=== PATIENT | male | born 1940 | race Caucasian/White ===

== ENCOUNTER 2016-11-03 15:24 | Inpatient (IN) | payer MEDICARE, BC ==
--- NOTE | ~2016-11-03 | HP ---
Unit #: [id number] #: [id number] Patient: ISRAEL ZUNIGA [id number] [address] [address] [id number] E MR#: [id number] NAME: ISRAEL ZUNIGA ROOM: Age: 76 Sex: M Admission Date: 11/03/2016 : 1940 Attending Physician: Anastacio Kovacs M.D. Primary Care Physician: Wilfrido Le M.D. HISTORY AND PHYSICAL CHIEF COMPLAINT Confusion, dizzy. HISTORY OF PRESENT ILLNESS The patient is a 76-year-old male with past medical history of chronic kidney disease, chronic anemia, paroxysmal atrial fibrillation, chronic anticoagulation, hypertension, hyperlipidemia, COPD, GERD, chronic pain, diabetes, who presented to the emergency department for evaluation of the above. History is obtained from chart review and discussion with the ER staff as well as the patient's , who is at the bedside, and the patient. Apparently the patient has been somewhat confused for the past three days. She states that he has been "taking out of his head." He has been feeling increasingly generally weak. He had two bouts of emesis within the past 24 hours. He denies any abdominal pain, no diarrhea, no cough or cold symptoms. These symptoms are similar to when he has had low sodium in the past. In the emergency department initial pulse and blood pressure were 69 and 175/92 respectively. Comprehensive metabolic panel is notable for a sodium of 126. He was given 1 L of normal saline. He is being admitted to [facility] for evaluation and further treatment. PAST MEDICAL HISTORY 1. Admission to [facility] September 06-2016 for dizziness attributed to hyponatremia. He was seen in consultation by nephrology who felt that the low sodium was prerenal in etiology as it improved with fluids. 2. Paroxysmal atrial fibrillation, on chronic anticoagulation with Coumadin, followed by Dr. Dick. 3. Hypertension. 4. Hyperlipidemia. 5. COPD, not on home oxygen. 6. GERD. 7. Chronic pain. 8. Chronic kidney disease, followed by Dr. Laughlin. 9. Chronic anemia. 10. Echocardiogram December 23, 2014 showed an ejection fraction of 50% to 55% with mild septal dyskinesis, mild concentric left ventricular hypertrophy, mild mitral regurgitation, mild tricuspid regurgitation, mild pulmonic valvular regurgitation. Unit #: [id number] #: [id number] Patient: ISRAEL ZUNIGA PAST SURGICAL HISTORY 1. Cholecystectomy. 2. Bilateral inguinal hernia repair. 3. Foot surgery. 4. Vasectomy. SOCIAL HISTORY The patient lives with his . He quit smoking. There is no alcohol use. FAMILY HISTORY Noncontributory. REVIEW OF SYSTEMS A complete review of systems is negative except as indicated in the HPI. DIAGNOSTIC STUDIES CARDIOVASCULAR: EKG shows paced rhythm with a rate of 64 beats per minute. IMAGING: Chest x-ray shows nothing acute. CT of the head shows nothing acute. LABORATORY: Complete blood count notable for hemoglobin and hematocrit 10.1 and 28.8 respectively. Troponin is less than 0.05. Rapid flu screen is negative. INR is 1.3. Comprehensive metabolic panel notable for sodium of 126, chloride is 94, glucose 140, BUN and creatinine 18 and 1.6 respectively, albumin is 2.9. Urinalysis notable for 3+ protein, 100 glucose, 2+ blood, with 10 to 25 red blood cells. PHYSICAL EXAMINATION VITAL SIGNS: Temperature is 97.5. Pulse 69. Respirations 13. Blood pressure 175/92. Oxygen saturation is 96% on room air. GENERAL: The patient is a male who is awake and alert, in no acute distress. HEENT: The head is atraumatic. Mucous membranes are moist. NECK: Neck is supple. Trachea is midline. CARDIOVASCULAR: Regular rate and rhythm. LUNGS: Lungs are clear to auscultation bilaterally with no increased work of breathing. ABDOMEN: Abdomen is soft, nontender, with bowel sounds present all four quadrants. EXTREMITIES: Nontender with no pedal edema. NEUROLOGIC: The patient is awake and alert. He is oriented to person and place only. He follows commands. PSYCHIATRIC: Mood and affect are normal. The patient is cooperative. SKIN: Skin of examined areas is warm and dry. ASSESSMENT The patient is a 76-year-old male with: 1. Altered mental status, likely secondary to #2. 2. Hyponatremia. The patient has had two bouts of emesis within the past 24 hours but otherwise has been eating at baseline per family. He has not had any change in his medications. 3. Generalized weakness, likely secondary to hyponatremia. 4. Chronic kidney disease. The patient's creatinine was 1.4 on September 08, 2016. It is 1.6 today. Unit #: [id number] #: [id number] Patient: ISRAEL ZUNIGA 5. Chronic anemia. The patient's hemoglobin was 9.6 on September 08, 2016. It is 10.1 today. 6. Paroxysmal atrial fibrillation. 7. Chronic anticoagulation with Coumadin. The patient's INR is 1.3 today. 8. Hypertension. 9. Hyperlipidemia. 10. Chronic obstructive pulmonary disease. 11. Gastroesophageal reflux disease. 12. Chronic pain. 13. Former smoker. 14. Diabetes. PLAN 1. Admit to intermediate level. 2. Healthy heart consistent carb diet if passes bedside swallow. 3. Normal saline at 75 mL an hour. 4. TSH, B12 and folate. 5. Neuro checks. 6. Urine sodium and osmolality. 7. Serum osmolality. 8. Repeat BMP later this evening to follow up hyponatremia. 9. Consult Dr. Laughlin regarding hyponatremia. 10. Bed rest. 11. Fall precautions. 12. PT/OT to evaluate and treat. 13. Serial cardiac enzymes. 14. Supplemental oxygen. 15. P.r.n. DuoNeb. 16. Hemoglobin A1C. 17. Low dose sliding scale insulin with Accu-Cheks. 18. Additional workup and consultants based on above. Dictated by Zelda Arzola/raghu TD: 11/03/2016 18:12 JOB #: [id number] HISTORY AND PHYSICAL X Valentina Amato MD X HISTORY AND PHYSICAL
--- NOTE | ~2016-11-03 | DS ---
Unit #: [id number] #: [id number] Patient: ISRAEL ZUNIGA [id number] [address] [place], [place] [address] [id number] I MR#: [id number] NAME: ISRAEL ZUNIGA. ROOM: 306 Age: 76 Sex: M Admission Date: 11/03/2016 : 1940 Discharge Date: 11/06/2016 Attending Physician: Duke Benson M.D. Primary Care Physician: Wilfrido Le M.D. DISCHARGE SUMMARY REASON FOR ADMISSION Confusion, dizziness. HISTORY OF PRESENT ILLNESS/HOSPITAL COURSE The patient is a 76-year-old male with underlying history of chronic kidney disease, chronic anemia, paroxysmal atrial fibrillation on chronic anticoagulation, hypertension, hyperlipidemia, COPD, GERD, xytu-yv-jstbjzsm Alzheimer dementia who apparently had increased confusion while he was at home. became concerned secondary to prior history of having low sodium. The patient was evaluated in the emergency room and noted to have a sodium of 126, elevated creatinine of 1.6 and thus was admitted for hyponatremia as well as acute confusion. Routine laboratory studies were obtained. B12 level was noted to be 299. He was appropriately treated while he was here. Cardiac enzymes were also cycled and they were negative. Hemoglobin A1c came back at 5.6%. We placed consultation to Dr. Amanda of nephrology services as their team had seen the patient in the past. The patient received Samsca on two different occasions. This morning the patient's sodium now stands at 130. After chart review, it appears this is one of the highest sodium numbers he has had in the past several months. His creatinine today at time of discharge is 1.5. We are waiting final renal review of his laboratory studies. The patient as well as his wished to go home. Therefore, plans will be for patient to be discharged home with the understanding that they will have close outpatient followup with PCP in approximately 7-10 days as well as nephrology services per their direction. He should be set up for outpatient vitamin B12 injections either on q. week to q.2 weeks basis after time of discharge. FINAL DISCHARGE DIAGNOSES 1. Hyponatremia. 2. Dizziness, likely secondary to hyponatremia. 3. Paroxysmal atrial fibrillation on chronic anticoagulation followed by Dr. Dick. 4. Hypertension. 5. Hyperlipidemia. 6. Chronic obstructive pulmonary disease. 7. Gastroesophageal reflux disease. 8. Chronic kidney disease followed by Dr. Laughlin routinely. 9. Anemia. Unit #: [id number] #: [id number] Patient: ISRAEL ZUNIGA 10. Diastolic dysfunction with ejection fraction of 50% to 55% on last echo in December 2014. FINAL DISCHARGE MEDICATIONS 1. Tylenol 650 mg p.o. q.6 p.r.n. 2. Coumadin 5 mg p.o. daily six times a week. 3. Pravachol 40 mg p.o. daily. 4. Tenormin 25 mg p.o. b.i.d. 5. Cozaar 50 mg p.o. b.i.d. 6. Multivitamin daily. 7. Aspirin 81 mg p.o. daily. 8. Vitamin B12 at 1000 mcg IM q. week. DISCHARGE CONDITION Stable. DISCHARGE DISPOSITION Home. Dictated by... Zelda Ho/urbano TD: 11/06/2016 10:19 JOB #: [id number] DISCHARGE SUMMARY X Duke Benson MD X DISCHARGE SUMMARY
--- NOTE | ~2016-11-03 | CO ---
Unit #: [id number] #: [id number] Patient: ISRAEL ZUNIGA [id number] [address] [place], [place] [address] [id number] I MR#: [id number] NAME: ISRAEL ZUNIGA. ROOM: 306 Age: 76 Sex: M Admission Date: 11/03/2016 : 1940 Attending Physician: Duke Benson M.D. Primary Care Physician: Wilfrido Le M.D. Requesting Physician: Duke Benson M.D. CONSULTATION REPORT REASON FOR CONSULTATION Hyponatremia, known history of CKD, stage [address] Laughlin. Patient admitted with hyponatremia and confusion. HISTORY OF PRESENT ILLNESS This patient is a pleasant 76-year-old white gentleman with history of hypertension, history of COPD, chronic atrial fibrillation, CKD stage 3, chronic hyponatremia secondary to SIADH. Patient was recently switched from Cymbalta to fluoxetine. Patient started to get confusion over the last 3 days since he started the medicine and was brought in. He was found to be hyponatremic, most likely precipitated by SSRI. The patient is still confused but improving. The patient's serum sodium actually went down from 126 to 123 with IV fluids of which just confirms the same diagnosis of SIADH. He has urinary sodium of 46 and osmolarity of 410 and presence of serum sodium of 123, confirming SIADH diagnosis. The patient denied dysuria, frequency of urination, cough with sputum production, chest pain or shortness of breath. PAST MEDICAL HISTORY As per history of present illness. HOME MEDICATIONS Include: 1. Atenolol 25 mg daily. 2. Pravastatin 40 mg daily. 3. Losartan 50 mg daily. 4. Aspirin 80 mg daily. 5. Glucosamine 1500 mg b.i.d. 6. Fish oil 600 mg b.i.d. 7. Multivitamin daily. 8. Tylenol daily. 9. Coumadin 5 mg daily. 10. He was recently started on fluoxetine which has been stopped. FAMILY HISTORY Noncontributory. PHYSICAL EXAMINATION VITAL SIGNS: Temperature 98.2, pulse 65, blood pressure 147/77. GENERAL: The patient is in no acute distress. HEENT: Unremarkable. Mild pallor, no oral exudate. NECK: Supple. No JVD or bruit, no thyromegaly, no cervical lymphadenopathy. LUNGS: Clear to auscultation bilaterally. Unit #: [id number] #: [id number] Patient: ISRAEL ZUNIGA HEART: Regular rate and rhythm. No rub, murmur or gallop. ABDOMEN: Soft, nontender, nondistended. Positive bowel sounds. EXTREMITIES: No peripheral edema. DIAGNOSTIC STUDIES LABORATORY: Urinary sodium was 46, osmolarity 410. Serum sodium 123, potassium 4.1, chloride 95, bicarb 26, BUN 14, creatinine 1.4 down from 1.6, glucose 105, calcium 8.1, uric acid 4.2. Urinalysis has some pyuria and bacteruria along with proteinuria of 3+ which would be quite unusual for patient without diabetic kidney disease. Patient had rbc's 10-25, wbc's 2-5. Patient also has some yeast but no bacteria. ASSESSMENT 1. Patient with confusion with hyponatremia. Will discontinue fluoxetine. Patient will receive a dose of Samsca today and will monitor his electrolytes in 10-12 hours of the dose. Patient seemed to be improving clinically. 2. Proteinuria, hematuria. Will check the 24-hour urine and rule out other secondary causes for patient's proteinuria. Dictated by... Neida Amanda M.D. BECK/kera TD: 11/04/2016 20:20 JOB #: [id number] CONSULTATION REPORT X Parish Amanda MD X CONSULTATION REPORT
--- NOTE | ~2016-11-03 | CT71 ---
[facility] A Service [facility] RADIOLOGY TEXT RESULTS PATIENT: ISRAEL ZUNIGA LOCATION: [facility] : 38 UNIT #: [id number] AGE: [address]: Duke Benson MD SEX: M ORDER DR: [id number] [address] [place] [id number] [facility]. [place], [place] [address] [id number] MR#: [id number] Acc #: [id number] NAME: ISRAEL ZUNIGA. : 1940 SEX: M STUDY DATE/TIME: 11/03/2016 15:41 [facility] STUDY DESCRIPTION: CT Head Wo Contrast Attending Physician: Valentina Amato M.D. Ordering Physician: Edwardo Queen M.D. Primary Care Physician: Wilfrido Le M.D. MEDICAL IMAGING REPORT This report is preliminary unless electronic signature is present EXAM Head CT without contrast, 11/03/2016 HISTORY Dizziness and confusion, onset today. COMPARISON 09/06/2016 TECHNIQUE Axial images were obtained without contrast. CT dose reduction techniques were employed. This CT exam was performed with one or more of the following radiation dose reduction techniques: automatic exposure control, adjustment of mA and/or kV according to patient size, and iterative reconstruction. FINDINGS Generalized atrophy is noted. There is no evidence of mass lesion, hemorrhage or edema. No midline shift is noted. No changes are seen since the previous scan. IMPRESSION Generalized atrophy with chronic ischemic changes around the ventricles. No acute findings. Dictated by... Vinod Quesada M.D. THIS IS AN ELECTRONICALLY VERIFIED REPORT Vinod Quesada M.D. at 11/04/2016 3:41 PM [facility] A Service [facility] RADIOLOGY TEXT RESULTS PATIENT: ISRAEL ZUNIGA LOCATION: [facility] : 38 UNIT #: [id number] AGE: [address]: Duke Benson MD SEX: M ORDER DR: ROXANNE/dorothy TD: 11/04/2016 04:19 JOB #: [id number] MEDICAL IMAGING REPORT COPY
--- NOTE | ~2016-11-03 | CR72 ---
[facility] A Service of [facility] RADIOLOGY TEXT RESULTS PATIENT: ISRAEL ZUNIGA LOCATION: [facility] - : 38 UNIT #: [id number] AGE: [address]: Duke Benson MD SEX: M ORDER DR: [id number] [facility] [address]. [place], [place] [address] [id number] I MR#: [id number] Acc #: [id number] NAME: ISRAEL ZUNIGA. : 1940 SEX: M STUDY DATE/TIME: 11/03/2016 15:57 UNIT: [address] ROOM: [facility] STUDY DESCRIPTION: CR Chest Single View Portable Attending Physician: Duke Benson M.D. Ordering Physician: Ed Doctor [id number] [facility] Primary Care Physician: Wilfrido Le M.D. MEDICAL IMAGING REPORT This report is preliminary unless electronic signature is present EXAM Portable chest HISTORY Dizziness, confusion, weakness, shortness of air x2 days COMPARISON 09/06/2016 FINDINGS A portable view of the chest demonstrates mild elevation left hemidiaphragm blunting the left CP angle which appears chronic and may reflect chronic volume loss or chronic pleural thickening. Mild patchy hyperlucency suggests background emphysema. No acute airspace disease or consolidation. Heart, mediastinum unremarkable. Dual lead pacemaker in place unchanged. Advanced arthritic changes noted right shoulder. No visible pneumothorax. Overall no acute findings. Dictated by... Abbie Johnson M.D. THIS IS AN ELECTRONICALLY VERIFIED REPORT Abbie Johnson M.D. at 11/04/2016 2:04 PM Isaias TD: 11/04/2016 07:37 JOB #: [id number] MEDICAL IMAGING REPORT COPY
--- NOTE | ~2016-11-03 | EKG ---
PATIENT: ISRAEL ZUNIGA UNIT #: [id number] Ventricular Rate: 64 BPM Atrial Rate: 64 BPM P-R Interval: 138 ms QRS Duration: 84 ms Q-T Interval: 412 ms QTC Calculation(Bezet): 425 ms P Armour: -22 degrees Calculated R Armour: 43 degrees Calculated T Armour: 51 degrees Diagnosis Line: Electronic atrial pacemaker Diagnosis Line: When compared with ECG of 06-SEP-2016 13:08, Diagnosis Line: No significant change was found Diagnosis Line: Confirmed by MATTIE DIAZ MD ([id number]) on Diagnosis Line: 11/04/2016 11:24:39 AM INTERPRETING MD: EMILY BURKS
[~2016-11-03 15:24] MED LIST: ALLERGY25 MG PO; AMLODIPINE BESYL5 MG PO; ASPIRIN PO; ASPIRIN81 M2 PO; ATENOLOL PO; ATENOLOL25 MG PO; BAYER CHEWABLE81 MG PO; COUMADIN2.5 MG PO; COUMADIN5 MG PO; CYMBALTA30 M1 PO; CYMBALTA30 MG PO; FISH OIL 1,0001 CAP PO; FISH OIL 1,001000 M1 PO; FISH OIL300 MG PO; FISH OIL500 M2 PO; GLUCOSAMINE; GLUCOSAMINE1000 MG PO; GLUCOSAMINE500 M1 PO; HYZAAR 100-25 T1 TAB PO; HYZAAR 50-12.51 TAB PO; LANSOPRAZOLE30 M2 PO; LANSOPRAZOLE30 M3 PO; LANSOPRAZOLE30 MG PO; LIPITOR PO; LOSARTAN POTASS50 MG PO; METFORMIN PO; MULTI VITAMIN1 EACH PO; MULTI-VITAMIN1 EAC1 PO; NEXIUM PO; NORVASC PO; OMEGA 3 FISH OI1 CAP PO; PERCOCET 51 UDTAB 5/ PO; PRAVASTATIN SOD40 MG PO; PREVASTATIN; SODIUM CHLORIDE1 GM PO; STOOL SOFTENER100 M1 PO; TENORMIN25 M1 PO; TYLENOL325 M1 PO; TYLOX 5/500 CAP1 CAP PO; [UNRECOGNIZED DRUG - REMARK]; [UNRECOGNIZED DRUG - REMARK]; [UNRECOGNIZED DRUG - REMARK]
[2016-11-03 15:46] LABS: BASOPHIL% 0.5 % (0-2.5); DIFF IND NO; EOSINOPHIL# 0.1 X10e3 (0-0.7); EOSINOPHIL% 1.4 % (0.0-7.0); HEMATOCRIT 28.8 % (38.0-50.0); HEMOGLOBIN 10.1 gm/dL (13.0-16.0); LYMPHOCYTE# 1.8 X10e3 (1.0-3.5); LYMPHOCYTE% 20.6 % (17.0-45.0); MEAN CELL VOLUME 89.3 FL (83-96); MEAN CORPUSCULAR HEMOGLOBIN 31.4 PG (28-34); MEAN CORPUSCULAR HGB CONC 35.1 g/dL (30-36); MEAN PLATELET VOLUME 6.9 FL (6.5-11.5); MONOCYTE# 0.6 X10e3 (0-1.0); NEUTROPHIL% 70.5 % (40-75); PLATELET COUNT 212 X10e3 (140-420); RED BLOOD COUNT 3.23 X10e (3.90-5.60); RED CELL DISTRIBUTION WIDTH 13.4 % (11.0-15.5); WHITE BLOOD COUNT 8.5 X10e3 (4.0-10.5)
[2016-11-03 15:49] LABS: POC - CKMB 1.2 ng/mL (0.0-7.9); POC - TROPONIN <0.05 ng/mL (<=0.05)
[2016-11-03 15:55] LABS: INFLUENZA A NEG (NEG); INFLUENZA B NEG (NEG)
[2016-11-03 16:01] LABS: INR 1.3
[2016-11-03 16:06] LABS: ALBUMIN SERUM 2.9 g/dL (3.5-5.0); BILIRUBIN, DIRECT 0.2 mg/dL (0.0-0.2); BILIRUBIN,INDIRECT 0.9 mg/dL (0.0-0.9); BILIRUBIN,TOTAL 1.1 mg/dL (0.2-2.0); BUN/CREATININE RATIO 11.25; CALCIUM SERUM 8.9 mg/dL (8.4-10.2); CREATININE SERUM 1.6 mg/dL (0.6-1.4); GLOM FILT RATE Estimated 44.7 mL/min (>60); POTASSIUM 4.4 mmol/L (3.5-5.1); PROTEIN TOTAL SERUM 5.9 g/dL (6.0-8.3)
[2016-11-03] MEDS ORDERED: COUMADIN5 MG PO (16:21)
[2016-11-03 16:27] LABS: URINE SOURCE CLEAN CATCH
[2016-11-03 16:31] LABS: URINE APPEARANCE CLEAR; URINE BILIRUBIN NEG (NEG); URINE BLOOD 2+ (NEG); URINE COLOR YELLOW; URINE GLUCOSE 100 MG/DL (NEG); URINE KETONE NEG (NEG); URINE LEUKOCYTE ESTERASE NEG (NEG); URINE NITRATE NEG (NEG); URINE PH 6.5 (5-8); URINE PROTEIN 3+ (NEG); URINE SPECIFIC GRAVITY 1.021 (1.003-1.035); URINE UROBILINOGEN 0.2 MG/DL (NEG)
[2016-11-03 16:33] LABS: URINE BACTERIA AUWI NEG (NEGATIVE); URINE SQUAMOUS EPITHELIAL CELL OCC /[HPF]; UWBCS1 AUWI 0-2 (0-5)
[2016-11-03 16:37] LABS: CULTURE INDICATED? NO
[2016-11-03 17:31] LABS: POC - CKMB 1.1 ng/mL (0.0-7.9); POC - TROPONIN <0.05 ng/mL (<=0.05)
[2016-11-03 18:53] LABS: SODIUM URINE RANDOM 46 mmol/L
[2016-11-03 19:07] LABS: OSMOLALITY,URINE 410 mOsmo/kg (250-900)
[2016-11-03 19:24] LABS: FOLATE (FOLIC ACID) >23.6 ng/mL (>5.8)
[2016-11-03 21:44] LABS: BUN/CREATININE RATIO 10.62; CALCIUM SERUM 8.5 mg/dL (8.4-10.2); CREATININE SERUM 1.6 mg/dL (0.6-1.4); GLOM FILT RATE Estimated 44.7 mL/min (>60); POTASSIUM 4.5 mmol/L (3.5-5.1)
[2016-11-04 00:59] LABS: %MB 3.3 % (0.0-4.0); MB 2.3 ng/ml
[2016-11-04 05:07] LABS: BASOPHIL% 0.5 % (0-2.5); EOSINOPHIL# 0.1 X10e3 (0-0.7); EOSINOPHIL% 0.6 % (0.0-7.0); LYMPHOCYTE% 20.5 % (17.0-45.0); MEAN CELL VOLUME 89.9 FL (83-96); MEAN CORPUSCULAR HEMOGLOBIN 32.3 PG (28-34); MEAN CORPUSCULAR HGB CONC 35.9 g/dL (30-36); MEAN PLATELET VOLUME 7.3 FL (6.5-11.5); MONOCYTE# 0.8 X10e3 (0-1.0); MONOCYTE% 8.1 % (3.0-12.0); NEUTROPHIL# 6.9 X10e3 (1.5-7.1); NEUTROPHIL% 70.3 % (40-75); PLATELET COUNT 154 X10e3 (140-420); RED BLOOD COUNT 2.78 X10e (3.90-5.60); RED CELL DISTRIBUTION WIDTH 12.9 % (11.0-15.5); WHITE BLOOD COUNT 9.8 X10e3 (4.0-10.5)
[2016-11-04 05:24] LABS: INR 1.1; PROTHROMBIN TIME (PATIENT) 11.9 SECONDS (9.6-11.5)
[2016-11-04 05:53] LABS: DIFF IND NO
[2016-11-04 05:58] LABS: ALBUMIN SERUM 2.6 g/dL (3.5-5.0); BILIRUBIN,TOTAL 1.1 mg/dL (0.2-2.0); CALCIUM SERUM 8.1 mg/dL (8.4-10.2); CREATININE SERUM 1.4 mg/dL (0.6-1.4); GLOM FILT RATE Estimated 52.1 mL/min (>60); POTASSIUM 4.1 mmol/L (3.5-5.1); PROTEIN TOTAL SERUM 5.1 g/dL (6.0-8.3)
[2016-11-04 06:25] LABS: %MB 2.7 % (0.0-4.0); MB 1.9 ng/ml
[2016-11-05 06:32] LABS: HEMATOCRIT 25.7 % (38.0-50.0); HEMOGLOBIN 9.1 gm/dL (13.0-16.0); MEAN CELL VOLUME 89.5 FL (83-96); MEAN CORPUSCULAR HEMOGLOBIN 31.6 PG (28-34); MEAN CORPUSCULAR HGB CONC 35.3 g/dL (30-36); MEAN PLATELET VOLUME 7.6 FL (6.5-11.5); RED BLOOD COUNT 2.87 X10e (3.90-5.60); RED CELL DISTRIBUTION WIDTH 12.8 % (11.0-15.5); WHITE BLOOD COUNT 10.4 X10e3 (4.0-10.5)
[2016-11-05 06:34] LABS: INR 1.1; PROTHROMBIN TIME (PATIENT) 11.3 SECONDS (9.6-11.5)
[2016-11-05 07:27] LABS: BUN/CREATININE RATIO 10.66; CALCIUM SERUM 8.8 mg/dL (8.4-10.2); CREATININE SERUM 1.5 mg/dL (0.6-1.4); GLOM FILT RATE Estimated 48.1 mL/min (>60); MAGNESIUM 1.6 mg/dL (1.6-3.0); POTASSIUM 4.1 mmol/L (3.5-5.1)
[2016-11-06 07:25] LABS: HEMOGLOBIN 9.6 gm/dL (13.0-16.0); MEAN CELL VOLUME 90.7 FL (83-96); MEAN CORPUSCULAR HEMOGLOBIN 31.2 PG (28-34); MEAN CORPUSCULAR HGB CONC 34.4 g/dL (30-36); MEAN PLATELET VOLUME 7.4 FL (6.5-11.5); RED BLOOD COUNT 3.08 X10e (3.90-5.60); RED CELL DISTRIBUTION WIDTH 12.9 % (11.0-15.5)
[2016-11-06 07:56] LABS: CREATININE SERUM 1.5 mg/dL (0.6-1.4); GLOM FILT RATE Estimated 48.1 mL/min (>60); MAGNESIUM 1.8 mg/dL (1.6-3.0); POTASSIUM 3.7 mmol/L (3.5-5.1)
[2016-11-06 10:39] LABS: HEP B SURFACE AG Nonreactive (Nonreactive); HEP C AB (HEPPAN) Nonreactive (Nonreactive); HEP C AB SIGNAL TO CUTOFF 0.01 ratio (<1.00); MYELOPEROXIDASE AB (PNL) <1.0 AI (<1.0); PROTEINASE-3 AB (PNL) <1.0 AI (<1.0); SPE A1GLOB (PNL) 0.3 g/dL (0.2-0.3); SPE A2GLOB (PNL) 0.8 g/dL (0.5-0.9); SPE ALB (PNL) 2.9 g/dL (3.8-4.8); SPE BETA 1 GLOBULIN 0.4 g/dL (0.4-0.6); SPE BETA 2 GLOBULIN 0.3 g/dL (0.2-0.5); SPE GAMMA (PNL) 0.7 g/dL (0.8-1.7); SPETP (PNL) 5.4 g/dL (6.1-8.1)
[2016-11-06 19:31] LABS: BUN/CREATININE RATIO 11.17; CREATININE SERUM 1.7 mg/dL (0.6-1.4); GLOM FILT RATE Estimated 41.6 mL/min (>60); POTASSIUM 4.3 mmol/L (3.5-5.1)
[2016-11-07 06:07] LABS: BUN/CREATININE RATIO 9.41; CALCIUM SERUM 8.5 mg/dL (8.4-10.2); CREATININE SERUM 1.7 mg/dL (0.6-1.4); GLOM FILT RATE Estimated 41.6 mL/min (>60); POTASSIUM 3.6 mmol/L (3.5-5.1)
[2016-11-07] MEDS ORDERED: CYANOCOBAL1000 MCG/M INJ (12:02)
[2016-11-07 23:22] LABS: ANA SCREEN Positive (Negative); ANA TITER COMMENT Has been added (()); NUCLEAR PATTERN (ANA) Homogeneous (()); SJOGREN'S SSA AB <1.0 AI (<1.0); SJOGREN'S SSB AB <1.0 AI (<1.0)
== END 2016-11-07 13:34 | disposition home or self-care (01) | DRG 643 ==
LOC: CED 15:24 → CEDOF 17:25 → C3A PCU 19:35
PROVIDERS: Emergency Medicine; Family Medicine; Internal Medicine Nephrology
DX: E22.2 Syndrome of inappropriate secretion of antidiuretic hormone (principal); G93.41 Metabolic encephalopathy; I48.0 Paroxysmal atrial fibrillation; J44.9 Chronic obstructive pulmonary disease, unspecified; G30.8 Other Alzheimer's disease; I12.9 Hypertensive chronic kidney disease with stage 1 through stage 4 chronic kidney disease, or unspecified chronic kidney disease; D53.9 Nutritional anemia, unspecified; F02.80 Dementia in other diseases classified elsewhere, unspecified severity, without behavioral disturbance, psychotic disturbance, mood disturbance, and anxiety; E11.9 Type 2 diabetes mellitus without complications; R42 Dizziness and giddiness; R80.9 Proteinuria, unspecified; R31.9 Hematuria, unspecified; Z79.01 Long term (current) use of anticoagulants; N18.3 Chronic kidney disease, stage 3 (moderate); Z87.891 Personal history of nicotine dependence; E78.5 Hyperlipidemia, unspecified; K21.9 Gastro-esophageal reflux disease without esophagitis; G89.29 Other chronic pain; R11.10 Vomiting, unspecified; Z90.49 Acquired absence of other specified parts of digestive tract
CPT/HCPCS: 36415; 70450; 71010; 80048; 80053; 80061; 80076; 81003; 82550; 82553; 82570; 82607; 82746; 82947; 83036; 83735; 83930; 83935; 84165; 84300; 84443; 84484; 85025; 85027; 85610; 85730; 86021; 86038; 86039; 86235; 86803; 87340; 87804; 93005; 94640; 94760; 97162; 99285; G8978-GP; G8979-GP; J0360; J1815; J3420